=== PATIENT | male | born 1990 | race African-American/Black ===

== ENCOUNTER 2021-04-12 13:45 | Outpatient (REF) | payer OTHER, SELFPAY ==
[2021-04-12 15:05] LABS: MANUAL DIFF FLAG NO
[2021-04-12 15:10] LABS: Basophils Percent Auto 0.2 % (0-2); Eosinophils Percent Auto 0.7 % (0-4); Hematocrit 42.3 % (42-52); Hemoglobin 14.4 g/dl (14.0-18.0); Imm Gran Abs Auto 0.01 X10*3/uL (0.00-0.03); Imm Gran Pct Auto 0.2 % (0.0-0.4); Lymphocytes Absolute Auto 1.3 X10*3/uL (1.2-4.9); Mean Corpuscular Hemoglobin 30.3 pg (27.0-33.0); Mean Corpuscular Volume 89.1 fL (80-98); Mean Platelet Volume 10.6 fL (9.4-12.4); Monocytes Absolute Auto 0.5 X10*3/uL (0.1-1.2); Monocytes Percent Auto 12.5 % (2-11); Neutrophils Absolute Auto 2.2 X10*3/uL (2.0-8.3); Neutrophils Percent Auto 54.4 % (45-73); Platelet Count 233 X10*3/uL (160-400); Red Blood Count 4.75 X10*6/uL (4.60-5.80); Red Cell Distribution Width 13.5 % (11.0-16.0); White Blood Count 4.1 X10*3/uL (4.8-10.8)
[2021-04-12 15:31] LABS: Alanine Aminotransferase 84 U/L (0-40); Albumin Level 4.6 g/dL (3.5-5.0); Alkaline Phosphatase 78 U/L (39-117); Anion Gap 19 (12-20); Aspartate Amino Transferase 35 U/L (5-37); Blood Urea Nitrogen 12 mg/dL (9-16); Calcium 9.7 mg/dL (8.4-10.2); Carbon Dioxide 17 mmol/L (22-29); Chloride 104 mmol/L (96-108); Cholesterol 161 mg/dL; Estimated Glomerular Filt Rate > 60; Glucose Fasting 76 mg/dL (60-99); HDL Cholesterol 33 mg/dL; LDL Cholesterol Calculated 114 mg/dl; Potassium 3.9 mmol/L (3.3-5.1); Sodium 136 mmol/L (135-145); Total Protein 7.2 g/dL (6.5-8.0); Triglycerides 74 mg/dL
[2021-04-12 15:55] LABS: Thyroid Stimulating Hormone 0.66 uIU/mL (0.32-4.0)
== END 2021-04-12 13:46 | disposition home or self-care (01) ==
LOC: HO.LAB 13:45
PROVIDERS: PCP Internal Medicine; Visit Provider Internal Medicine
DX: Z00.00 Encounter for general adult medical examination without abnormal findings (principal); E03.9 Hypothyroidism, unspecified; E11.9 Type 2 diabetes mellitus without complications
CPT/HCPCS: 36415; 80053; 80061; 84443; 85025

== ENCOUNTER 2022-07-04 13:31 | Outpatient (REF) | payer OTHER, SELFPAY ==
[2022-07-04 13:50] LABS: MANUAL DIFF FLAG NO
[2022-07-04 14:25] LABS: Basophils Percent Auto 0.3 % (0-2); Eosinophils Absolute Auto 0.1 X10*3/uL (0.0-0.4); Eosinophils Percent Auto 0.8 % (0-4); Hematocrit 45.4 % (42.0-52.0); Hemoglobin 15.2 g/dl (14.0-18.0); Imm Gran Abs Auto 0.01 X10*3/uL (0.00-0.03); Imm Gran Pct Auto 0.2 % (0.0-0.4); Lymphocytes Percent Auto 33.5 % (20-40); Mean Corpuscular HGB Conc 33.5 g/dl (31.0-36.0); Mean Corpuscular Hemoglobin 29.6 pg (27.0-33.0); Mean Corpuscular Volume 88.3 fL (80.0-98.0); Mean Platelet Volume 10.4 fL (9.4-12.4); Monocytes Absolute Auto 0.5 X10*3/uL (0.1-1.2); Neutrophils Absolute Auto 3.5 x10*3/uL (2.0-8.3); Neutrophils Percent Auto 57.2 % (45-73); Platelet Count 224 X10*3/uL (160-400); Red Blood Count 5.14 X10*6/uL (4.60-5.80); Red Cell Distribution Width 13.1 % (11.0-16.0); White Blood Count 6.1 X10*3/uL (4.8-10.8)
[2022-07-04 14:40] LABS: Alanine Aminotransferase 32 U/L (0-40); Albumin Level 4.4 g/dL (3.5-5.0); Alkaline Phosphatase 73 U/L (39-117); Anion Gap 15 (12-20); Aspartate Amino Transferase 19 U/L (5-37); Bilirubin Total 0.7 mg/dL (0.0-1.0); Blood Urea Nitrogen 18 mg/dL (9-16); Calcium 9.6 mg/dL (8.4-10.2); Carbon Dioxide 26 mmol/L (22-29); Chloride 107 mmol/L (96-108); Cholesterol 185 mg/dL; Estimated Glomerular Filt Rate > 60; Glucose Fasting 86 mg/dL (60-99); HDL Cholesterol 36 mg/dL; LDL Cholesterol Calculated 122 mg/dl; Potassium 4.5 mmol/L (3.3-5.1); Sodium 143 mmol/L (135-145); Total Protein 7.2 g/dL (6.5-8.0); Triglycerides 137 mg/dL
[2022-07-04 14:55] LABS: Thyroid Stimulating Hormone 0.93 uIU/mL (0.32-4.0)
== END 2022-07-04 13:32 | disposition home or self-care (01) ==
LOC: HO.LAB 13:31
PROVIDERS: PCP Internal Medicine; Visit Provider Internal Medicine
DX: Z13.0 Encounter for screening for diseases of the blood and blood-forming organs and certain disorders involving the immune mechanism (principal); E03.9 Hypothyroidism, unspecified; E78.5 Hyperlipidemia, unspecified; I10 Essential (primary) hypertension
CPT/HCPCS: 36415; 80053; 80061; 84443; 85025

== ENCOUNTER 2023-08-14 12:48 | Outpatient (AMB) | payer OTHER, SELFPAY ==
[2023-08-14 12:54] VITALS: BP 110/82; PULSE 128; O2SAT 99; BMI 28.9
--- NOTE | 2023-08-14 12:54 | A.OFFPC_ITS ---
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 Knee Bolter: Not Required per policy Accompanied by: Self / Same As Patient Allergies No Known Allergies [No Known Allergies*] Allergy (Verified 07/04/22 12:52) Medication List - Last Reconciled 08/14/23 by Soto Swanson MD prazosin 1 mg PO BEDTIME quetiapine 200 mg PO BEDTIME Tobacco use date assessed: 08/14/23 Dental Screening Dental Screen Date: 08/14/23 Did you have a dental visit in the last 12 months?: No Did you have a dental problem in the last 6 months where you did not have access to dental care?: No Was dental information given to patient?: Patient has dentist HPI Physical exam HPI Details chronic depression and sees psych [facility] Medical History Depression Surgical History No pertinent past surgical history Family History Father No problems noted. Mother No problems noted. Maternal Aunt Mental health disorder Social History Housing: House Alcohol intake: never Patient Tobacco Use Status: Never used Tobacco e-Cigarette/Vaping Use: Never Used Second Hand Smoke Exposure: No service: No Current occupational status: disabled Cognitive needs: No Hearing needs: No Vision needs: Yes (glasses) Questionnaire PHQ-9 Over the last 2 weeks, how often have you been bothered by any of the following problems? 1. Little interest or pleasure in doing things: not at all 2. Feeling down, depressed, or hopeless: not at all 3. Trouble falling or staying asleep, or sleeping too much: not at all 4. Feeling tired or having little energy: not at all 5. Poor appetite or overeating: not at all 6. Feeling bad about yourself - or that you are a failure or have let yourself or your family down: not at all 7. Trouble concentrating on things, such as reading the newspaper or watching television: not at all 8. Moving or speaking so slowly that other people could have noticed. Or the opposite - being so fidgety or restless that you have been moving around a lot more than usual: not at all 9. Thoughts that you would be better off or of hurting yourself in some way: not at all Total score: 0 Depression Screening Interpretation: Negative Depression Screening Done: Yes 24875 - PHQ-9 Billing: Yes Source: Developed by Drs. Vishnu Corcoran, Maral Brito, Chuck Gomez and colleagues, with an educational reji from [employer]. Thrive Questionnaire Date Thrive assessed: 08/14/23 I am a: Patient What is your living situation today?: I have a steady place to live Within the past 12 months, did the food you bought not last and you didn't have the money to get more?: Never true Within the past 12 months, did you worry whether your food would run out before you got money to buy more?: Never true Do you have trouble paying for medicines?: No Do you have trouble getting transportation to medical appointments?: No Do you have trouble paying your heating and electricity bill?: No Do you have trouble taking care of your child, family member or friend?: No Do you have trouble with day-to-day activities such as bathing, preparing meals, shopping, managing finances, etc.?: No Are you currently unemployed and looking for a job?: No Are you interested in more education?: No Please select the resources that you would like help with: None AUDIT C Alcohol Use Questionnaire (AUDIT-C) 1. How often do you have a drink containing alcohol?: Never Total Score: 0 Score Reviewed/Action Taken: Yes JUSTIN-7 AMB Questionnaire JUSTIN-7 Date JUSTIN - 7 assessed: 08/14/23 Feeling nervous, anxious, or on edge: 2 = More than half the days Not being able to stop or control worryin = More than half the days Worrying too much about different things: 2 = More than half the days Trouble relaxin = Not at all Being so restless that it is hard to sit still: 0 = Not at all Becoming easily annoyed or irritable: 0 = Not at all Feeling afraid as if something awful might happen: 1 = Several days Total JUSTIN-7 score (0-4 normal; 5-9 mild; 10-14 moderate; 15-21 severe): 7 Source: Developed by Drs. Vishnu Corcoran, Maral Brito, Chuck Gomez and colleagues, with an educational reji from [employer]. JUSTIN-7 Assessment Billing JUSTIN-7 Assessment Tool: JUSTIN-7 Assessment 63647 Review of Systems Const Denies chills, Denies fatigue, Denies headache(s) and Denies weight loss Eyes Denies change in vision, Denies diplopia and Denies eye pain ENT Denies vertigo, Denies dizziness, Denies headache(s) and Denies nasal discharge Card Denies chest pain, Denies rapid heart rate and Denies dyspnea on exertion Resp Denies chest congestion, Denies cough, Denies pain with cough and Denies dyspnea on exertion GI Denies abdominal pain, Denies hematochezia and Denies change in bowel habits Musc Denies myalgias, Denies arthralgias and Denies joint swelling Skin/Breast Denies lesions and Denies unusual bruising Neuro Denies vertigo, Denies dizziness, Denies headache(s) and Denies focal weakness Endo Denies fatigue Physical exam (Primary Care) Vital Signs: Last Vital Signs Pulse 128 H 08/14/23 12:54 BP 110/82 08/14/23 12:54 Pulse Ox 99 08/14/23 12:54 Oxygen Delivery Method Room Air 08/14/23 12:54 BMI result Body Mass Index 28.9 Tobacco/Smoking Status: Tobacco use Status Tobacco use date assessed 08/14/23 08/14/23 12:59 Patient Tobacco Use Status Never used Tobacco 08/14/23 12:59 e-Cigarette/Vaping Use Never Used 08/14/23 12:59 PHQ-9: PHQ-9 Score PHQ-9: Total score 0 08/14/23 13:00 Depression Screening Interpretation: Negative Thrive Assessment: Date of Thrive Assessment Date Thrive assessed 08/14/23 08/14/23 12:59 Const General: cooperative, healthy appearing and no acute distress Orientation/consciousness: oriented to person, oriented to place and oriented to time HENMT Head: Yes normal to inspection, Yes normocephalic and Yes atraumatic Mouth: Normal oral and palatal mucosa present and tongue normal Throat: Yes posterior oropharynx normal and Yes uvula midline Eyes General: appearance normal, both eyes and all related structures Neck Neck: Yes normal visual inspection, Yes full ROM and Yes no lymphadenopathy Thyroid: Thyroid normal Carotids: normal carotid upstroke Chest Chest palpation & inspection: normal inspection of the chest Resp Effort & Inspection: normal respiratory effort and able to speak in complete sentences Auscultation: clear to auscultation bilaterally Cardio Jugular venous distension: no JVD Palpation: normal PMI Rate: regular rate Rhythm: regular rhythm Heart sounds: S1 normal heart sound present and S2 normal heart sound present GI Inspection: Yes normal to inspection Palpation (GI): Soft to palpation and No hepatosplenomegaly present Auscultation: normal bowel sounds General: Yes no CVA tenderness Back/Spine/Pelvis Back: no CVA tenderness Skin General skin exam: no rashes or lesions noted Neuro General: oriented to person, oriented to place and oriented to time Extrem General: Yes normal to inspection and Yes full ROM Assessment and Plan Assessment & Plan (1) Physical exam: Code(s): Z00.00 - Encounter for general adult medical examination without abnormal findings Plan: do labs (2) Chronic major depressive disorder: Code(s): F32.9 - Major depressive disorder, single episode, unspecified Plan: stable; sees psych Orders: Orders Lipid Panel Today E78.5 - Hyperlipidemia, unspecified Thyroid Stimulating Hormone Today E03.9 - Hypothyroidism, unspecified Complete Blood Count Auto Diff Today D64.9 - Anemia, unspecified Comprehensive [place]. Panel Fast Today N28.9 - Disorder of kidney and ureter, unspecified Coding Level of Care Code Est Pt Prev Care 18-39y(90382) Diagnoses Physical exam Z00.00 Chronic major depressive disorder F32.9 Additional Codes JUSTIN-7 Assessment Billing - JUSTIN-7 Assessment Tool: JUSTIN-7 Assessment 51550 ([id number])
== END 2023-08-14 13:16 | disposition home or self-care (01) ==
PROVIDERS: PCP Internal Medicine; Visit Provider Internal Medicine
DX: Z00.00 Encounter for general adult medical examination without abnormal findings (principal); F32.9 Major depressive disorder, single episode, unspecified
CPT/HCPCS: 99395

== ENCOUNTER 2023-08-14 13:21 | Outpatient (REF) | payer OTHER, SELFPAY ==
[2023-08-14 13:42] LABS: MANUAL DIFF FLAG NO
[2023-08-14 14:11] LABS: Basophils Percent Auto 0.2 % (0-2); Eosinophils Percent Auto 0.8 % (0-4); Hematocrit 47.2 % (42.0-52.0); Lymphocytes Absolute Auto 1.9 X10*3/uL (1.2-4.9); Lymphocytes Percent Auto 40.3 % (20-40); Mean Corpuscular HGB Conc 33.9 g/dl (31.0-36.0); Mean Corpuscular Hemoglobin 30.1 pg (27.0-33.0); Mean Corpuscular Volume 88.9 fL (80.0-98.0); Mean Platelet Volume 10.4 fL (9.4-12.4); Monocytes Absolute Auto 0.4 X10*3/uL (0.1-1.2); Monocytes Percent Auto 7.8 % (2-11); Neutrophils Absolute Auto 2.4 x10*3/uL (2.0-8.3); Neutrophils Percent Auto 50.9 % (45-73); Platelet Count 238 X10*3/uL (160-400); Red Blood Count 5.31 X10*6/uL (4.60-5.80); Red Cell Distribution Width 12.8 % (11.0-16.0); White Blood Count 4.7 X10*3/uL (4.8-10.8)
[2023-08-14 15:26] LABS: Alanine Aminotransferase 121 U/L (0-40); Albumin Level 4.5 g/dL (3.5-5.0); Alkaline Phosphatase 69 U/L (39-117); Anion Gap 12 (12-20); Aspartate Amino Transferase 44 U/L (5-37); Bilirubin Total 0.8 mg/dL (0.0-1.0); Blood Urea Nitrogen 16 mg/dL (9-16); Calcium 9.7 mg/dL (8.4-10.2); Carbon Dioxide 27 mmol/L (22-29); Chloride 108 mmol/L (96-108); Cholesterol 173 mg/dL (<200); Estimated Glomerular Filt Rate > 60; Glucose Fasting 88 mg/dL (60-99); HDL Cholesterol 34 mg/dL (>40); LDL Cholesterol Calculated 117 mg/dL (<100); Potassium 4.1 mmol/L (3.3-5.1); Sodium 143 mmol/L (135-145); Total Protein 7.7 g/dL (6.5-8.0); Triglycerides 111 mg/dL (<150)
[2023-08-14 15:28] LABS: Thyroid Stimulating Hormone 1.32 uIU/mL (0.32-4.0)
== END 2023-08-14 13:22 | disposition home or self-care (01) ==
LOC: HO.LAB 13:21
PROVIDERS: PCP Internal Medicine; Visit Provider Internal Medicine
DX: D64.9 Anemia, unspecified (principal); E03.9 Hypothyroidism, unspecified; E78.5 Hyperlipidemia, unspecified; N28.9 Disorder of kidney and ureter, unspecified
CPT/HCPCS: 36415; 80053; 80061; 84443; 85025

== ENCOUNTER 2024-02-16 10:41 | Outpatient (REF) | payer OTHER, SELFPAY ==
[2024-02-16 11:11] LABS: MANUAL DIFF FLAG NO
[2024-02-16 11:51] LABS: Basophils Percent Auto 0.2 % (0-2); Eosinophils Absolute Auto 0.1 X10*3/uL (0.0-0.4); Eosinophils Percent Auto 1.3 % (0-4); Hematocrit 46.5 % (42.0-52.0); Hemoglobin 15.7 g/dl (14.0-18.0); Imm Gran Abs Auto 0.01 X10*3/uL (0.00-0.03); Imm Gran Pct Auto 0.2 % (0.0-0.4); Lymphocytes Absolute Auto 2.2 X10*3/uL (1.2-4.9); Lymphocytes Percent Auto 45.9 % (20-40); Mean Corpuscular HGB Conc 33.8 g/dl (31.0-36.0); Mean Corpuscular Hemoglobin 30.5 pg (27.0-33.0); Mean Corpuscular Volume 90.3 fL (80.0-98.0); Mean Platelet Volume 10.5 fL (9.4-12.4); Monocytes Absolute Auto 0.5 X10*3/uL (0.1-1.2); Monocytes Percent Auto 10.4 % (2-11); Platelet Count 229 X10*3/uL (160-400); Red Blood Count 5.15 X10*6/uL (4.60-5.80); Red Cell Distribution Width 13.2 % (11.0-16.0); White Blood Count 4.8 X10*3/uL (4.8-10.8)
[2024-02-16 12:33] LABS: Anion Gap 18 (12-20); Blood Urea Nitrogen 21 mg/dL (9-16); Calcium 9.9 mg/dL (8.4-10.2); Carbon Dioxide 22 mmol/L (22-29); Chloride 106 mmol/L (96-108); Cholesterol 188 mg/dL (<200); Estimated Glomerular Filt Rate > 60; Glucose Fasting 91 mg/dL (60-99); HDL Cholesterol 38 mg/dL (>40); LDL Cholesterol Calculated 131 mg/dL (<100); Potassium 3.9 mmol/L (3.3-5.1); Sodium 142 mmol/L (135-145); Triglycerides 95 mg/dL (<150)
== END 2024-02-16 10:42 | disposition home or self-care (01) ==
LOC: HO.LAB 10:41
PROVIDERS: PCP Internal Medicine; Visit Provider Nurse Practitioner Psychiatric/Mental Health
DX: F34.1 Dysthymic disorder (principal); F79 Unspecified intellectual disabilities; Z79.899 Other long term (current) drug therapy
CPT/HCPCS: 36415; 80048; 80061; 85025

== ENCOUNTER 2024-08-15 10:23 | Outpatient (AMB) | payer OTHER, SELFPAY ==
[2024-08-15 10:24] VITALS: BP 122/78; PULSE 102; O2SAT 98; BMI 28.6
--- NOTE | 2024-08-15 10:24 | MHC.PC.OV ---
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 Accompanied by: Self / Same As Patient Allergies No Known Allergies [No Known Allergies*] Allergy (Verified 08/15/24 10:25) Medication List - Last Reconciled 08/16/24 by Soto Swanson MD prazosin 1 mg PO BEDTIME quetiapine 200 mg PO BEDTIME Tobacco use date assessed: 08/15/24 Dental Screening Dental Screen Date: 08/15/24 Did you have a dental visit in the last 12 months?: Yes Did you have a dental problem in the last 6 months where you did not have access to dental care?: No Was dental information given to patient?: Patient has dentist HPI Annual Exam HPI Details sees psych for depression PFSH Medical History Depression Surgical History No pertinent past surgical history Family History Father No problems noted. Mother No problems noted. Maternal Aunt Mental health disorder Social History Housing: House Alcohol intake: never Patient Tobacco Use Status: Never used Tobacco Tobacco use type: Cigarette e-Cigarette/Vaping Use: Never Used Second Hand Smoke Exposure: No service: No Current occupational status: disabled Cognitive needs: No Hearing needs: No Vision needs: Yes (glasses) Questionnaire PHQ-9 Over the last 2 weeks, how often have you been bothered by any of the following problems? 1. Little interest or pleasure in doing things: not at all 2. Feeling down, depressed, or hopeless: not at all 3. Trouble falling or staying asleep, or sleeping too much: not at all 4. Feeling tired or having little energy: not at all 5. Poor appetite or overeating: not at all 6. Feeling bad about yourself - or that you are a failure or have let yourself or your family down: not at all 7. Trouble concentrating on things, such as reading the newspaper or watching television: not at all 8. Moving or speaking so slowly that other people could have noticed. Or the opposite - being so fidgety or restless that you have been moving around a lot more than usual: not at all 9. Thoughts that you would be better off or of hurting yourself in some way: not at all Total score: 0 Depression Screening Interpretation: Negative Depression Screening Done: Yes 52749 - PHQ-9 Billing: Yes Source: Developed by Drs. Vishnu Corcoran, Maral Brito, Chuck Gomez and colleagues, with an educational reji from [employer]. Thrive Questionnaire Date Thrive assessed: 08/15/24 I am a: Patient What is your living situation today?: I have a steady place to live Within the past 12 months, did the food you bought not last and you didn't have the money to get more?: Never true Within the past 12 months, did you worry whether your food would run out before you got money to buy more?: Never true Do you have trouble paying for medicines?: No Do you have trouble getting transportation to medical appointments?: Yes Do you have trouble paying your heating and electricity bill?: No Do you have trouble taking care of your child, family member or friend?: No Do you have trouble with day-to-day activities such as bathing, preparing meals, shopping, managing finances, etc.?: Yes Are you currently unemployed and looking for a job?: No Are you interested in more education?: No Please select the resources that you would like help with: None Currently or been in a relationship where the following occur: I choose not to answer THRIVE Score: 1 AUDIT C Alcohol Use Questionnaire (AUDIT-C) 1. How often do you have a drink containing alcohol?: Never Total Score: 0 JUSTIN-7 AMB Questionnaire JUSTIN-7 Date JUSTIN - 7 assessed: 08/15/24 Feeling nervous, anxious, or on edge: 1 = Several days Not being able to stop or control worryin = Not at all Worrying too much about different things: 1 = Several days Trouble relaxin = Not at all Being so restless that it is hard to sit still: 0 = Not at all Becoming easily annoyed or irritable: 1 = Several days Feeling afraid as if something awful might happen: 0 = Not at all Total JUSTIN-7 score (0-4 normal; 5-9 mild; 10-14 moderate; 15-21 severe): 3 Source: Developed by Drs. Vishnu Corcoran, Maral Brito, Chuck Gomez and colleagues, with an educational reji from [employer]. Review of Systems Const Denies chills, Denies fatigue, Denies headache(s) and Denies weight loss Eyes Denies change in vision, Denies diplopia and Denies eye pain ENT Denies vertigo, Denies dizziness, Denies headache(s) and Denies nasal discharge Card Denies chest pain, Denies rapid heart rate and Denies dyspnea on exertion Resp Denies chest congestion, Denies cough, Denies pain with cough and Denies dyspnea on exertion GI Denies abdominal pain, Denies hematochezia and Denies change in bowel habits Musc Denies myalgias, Denies arthralgias and Denies joint swelling Skin/Breast Denies lesions and Denies unusual bruising Neuro Denies vertigo, Denies dizziness, Denies headache(s) and Denies focal weakness Endo Denies fatigue Physical exam (Primary Care) Vital Signs: Last Vital Signs Pulse 102 H 08/15/24 10:24 BP 122/78 08/15/24 10:24 Pulse Ox 98 08/15/24 10:24 Oxygen Delivery Method Room Air 08/15/24 10:24 BMI result Body Mass Index 28.6 Tobacco/Smoking Status: Tobacco use Status Tobacco use date assessed 08/15/24 08/15/24 10:25 Patient Tobacco Use Status Never used Tobacco 08/15/24 10:25 Tobacco use type Cigarette 08/15/24 10:25 e-Cigarette/Vaping Use Never Used 08/15/24 10:25 PHQ-9: PHQ-9 Score PHQ-9: Total score 0 08/15/24 10:25 Depression Screening Interpretation: Negative Thrive Assessment: Date of Thrive Assessment Date Thrive assessed 08/15/24 08/15/24 10:25 Currently or been in a relationship where the following occur: I choose not to answer Const General: cooperative, healthy appearing and no acute distress Orientation/consciousness: oriented to person, oriented to place and oriented to time HENMT Head: Yes normal to inspection, Yes normocephalic and Yes atraumatic Mouth: Normal oral and palatal mucosa present and tongue normal Throat: Yes posterior oropharynx normal and Yes uvula midline Eyes General: appearance normal, both eyes and all related structures Neck Neck: Yes normal visual inspection, Yes full ROM and Yes no lymphadenopathy Thyroid: Thyroid normal Carotids: normal carotid upstroke Chest Chest palpation & inspection: normal inspection of the chest Resp Effort & Inspection: normal respiratory effort and able to speak in complete sentences Auscultation: clear to auscultation bilaterally Cardio Jugular venous distension: no JVD Palpation: normal PMI Rate: regular rate Rhythm: regular rhythm Heart sounds: S1 normal heart sound present and S2 normal heart sound present GI Inspection: Yes normal to inspection Palpation (GI): Soft to palpation and No hepatosplenomegaly present Auscultation: normal bowel sounds General: Yes no CVA tenderness Back/Spine/Pelvis Back: no CVA tenderness Skin General skin exam: no rashes or lesions noted Neuro General: oriented to person, oriented to place and oriented to time Extrem General: Yes normal to inspection and Yes full ROM Coding Level of Care Code Est Pt Prev Care 18-39y(78899) Diagnoses Physical exam Z00.00 Depression F32.9 Additional Codes PHQ-9 - 82998 - PHQ-9 Billing: Yes ([id number]) Assessment & Plan Assessment & Plan (1) Physical exam: Code(s): Z00.00 - Encounter for general adult medical examination without abnormal findings Category: Medical Plan: do labs (2) Depression: Comment: cont same meds; f/u with psych Code(s): F32.9 - Major depressive disorder, single episode, unspecified Category: Medical Plan: stable Orders: Orders Complete Blood Count Auto Diff Today Z13.0 - Encounter for screening for diseases of the blood and blood-forming organs and certain disorders involving the immune mechanism Lipid Panel Today Z13.220 - Encounter for screening for lipoid disorders Thyroid Stimulating Hormone Today Z13.29 - Encounter for screening for other suspected endocrine disorder Comprehensive [place]. Panel Fast Today Z13.9 - Encounter for screening, unspecified
== END 2024-08-15 10:39 | disposition home or self-care (01) ==
PROVIDERS: PCP Internal Medicine; Visit Provider Internal Medicine
DX: Z00.00 Encounter for general adult medical examination without abnormal findings (principal); F32.9 Major depressive disorder, single episode, unspecified

== ENCOUNTER → 2024-08-15 10:23 | Outpatient (BNVA) | payer OTHER, SELFPAY | PROVIDERS: PCP Internal Medicine; Visit Provider Internal Medicine | DX: Z00.00 Encounter for general adult medical examination without abnormal findings (principal); F32.9 Major depressive disorder, single episode, unspecified | CPT/HCPCS: 96127; 99395 ==

== ENCOUNTER 2024-12-07 09:04 | Outpatient (AMB) | payer OTHER, SELFPAY ==
--- NOTE | 2024-12-07 09:08 | A.OFFPC_ITS ---
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 Accompanied by: Brother Allergies No Known Allergies [No Known Allergies*] Allergy (Verified 12/07/24 09:15) Medication List - Last Reconciled 12/07/24 by Soto Swanson MD prazosin 1 mg PO BEDTIME quetiapine 200 mg PO BEDTIME Tobacco use date assessed: 12/07/24 Dental Screening Dental Screen Date: 12/07/24 Did you have a dental visit in the last 12 months?: Yes Did you have a dental problem in the last 6 months where you did not have access to dental care?: No Was dental information given to patient?: Patient has dentist HPI 3mth f/u HPI Details depression; sees psychiatry; stable [facility] Medical History Depression Surgical History No pertinent past surgical history Family History Father No problems noted. Mother No problems noted. Maternal Aunt Mental health disorder Social History Housing: House Alcohol intake: never Patient Tobacco Use Status: Never used Tobacco Tobacco use type: Cigarette e-Cigarette/Vaping Use: Never Used Second Hand Smoke Exposure: No service: No Current occupational status: disabled Cognitive needs: No Hearing needs: No Vision needs: Yes (glasses) Questionnaire PHQ-9 Over the last 2 weeks, how often have you been bothered by any of the following problems? 1. Little interest or pleasure in doing things: not at all 2. Feeling down, depressed, or hopeless: not at all 3. Trouble falling or staying asleep, or sleeping too much: not at all 4. Feeling tired or having little energy: not at all 5. Poor appetite or overeating: not at all 6. Feeling bad about yourself - or that you are a failure or have let yourself or your family down: not at all 7. Trouble concentrating on things, such as reading the newspaper or watching television: not at all 8. Moving or speaking so slowly that other people could have noticed. Or the opposite - being so fidgety or restless that you have been moving around a lot more than usual: not at all 9. Thoughts that you would be better off or of hurting yourself in some way: not at all Total score: 0 Depression Screening Interpretation: Negative Depression Screening Done: Yes 32681 - PHQ-9 Billing: Yes Source: Developed by Drs. Vishnu Corcoran, Maral Brito, Chuck Gomez and colleagues, with an educational reji from [employer]. Thrive Questionnaire Date Thrive assessed: 12/07/24 I am a: Patient What is your living situation today?: I have a steady place to live Within the past 12 months, did the food you bought not last and you didn't have the money to get more?: Never true Within the past 12 months, did you worry whether your food would run out before you got money to buy more?: Never true Do you have trouble paying for medicines?: No Do you have trouble getting transportation to medical appointments?: Yes Do you have trouble paying your heating and electricity bill?: No Do you have trouble taking care of your child, family member or friend?: No Do you have trouble with day-to-day activities such as bathing, preparing meals, shopping, managing finances, etc.?: Yes Are you currently unemployed and looking for a job?: No Are you interested in more education?: No Please select the resources that you would like help with: None Currently or been in a relationship where the following occur: I choose not to answer THRIVE Score: 1 AUDIT C Alcohol Use Questionnaire (AUDIT-C) 1. How often do you have a drink containing alcohol?: Never Total Score: 0 JUSTIN-7 AMB Questionnaire JUSTIN-7 Date JUSTIN - 7 assessed: 12/07/24 Feeling nervous, anxious, or on edge: 1 = Several days Not being able to stop or control worryin = Not at all Worrying too much about different things: 1 = Several days Trouble relaxin = Not at all Being so restless that it is hard to sit still: 0 = Not at all Becoming easily annoyed or irritable: 1 = Several days Feeling afraid as if something awful might happen: 0 = Not at all Total JUSTIN-7 score (0-4 normal; 5-9 mild; 10-14 moderate; 15-21 severe): 3 Source: Developed by Drs. Vishnu Corcoran, Maral Brito, Chuck Gomez and colleagues, with an educational reji from [employer]. Review of Systems Const Denies chills, Denies headache(s) and Denies weight loss ENT Denies headache(s) Card Denies chest pain, Denies syncope, Denies irregular heart rhythm and Denies dyspnea Resp Denies chest congestion, Denies cough and Denies dyspnea GI Denies abdominal pain, Denies change in stool character, Denies nausea and Denies vomiting Musc Denies deformity and Denies joint swelling Neuro Denies syncope and Denies headache(s) Physical exam (Primary Care) Vital Signs: Last Vital Signs Pulse 127 H 12/07/24 09:09 BP 122/80 12/07/24 09:09 Pulse Ox 96 12/07/24 09:09 Oxygen Delivery Method Room Air 12/07/24 09:09 BMI result Body Mass Index 28.7 Tobacco/Smoking Status: Tobacco use Status Tobacco use date assessed 12/07/24 12/07/24 09:15 Patient Tobacco Use Status Never used Tobacco 12/07/24 09:15 Tobacco use type Cigarette 12/07/24 09:15 e-Cigarette/Vaping Use Never Used 12/07/24 09:15 PHQ-9: PHQ-9 Score PHQ-9: Total score 0 12/07/24 09:15 Depression Screening Interpretation: Negative Thrive Assessment: Date of Thrive Assessment Date Thrive assessed 12/07/24 12/07/24 09:15 Currently or been in a relationship where the following occur: I choose not to answer Const General: cooperative, comfortable, no acute distress and alert Neck Neck: Yes no lymphadenopathy Thyroid: Thyroid normal Resp Effort & Inspection: normal respiratory effort Auscultation: clear to auscultation bilaterally Percussion: percussion normal Cardio Jugular venous distension: no JVD Palpation: normal PMI Rate: regular rate Rhythm: regular rhythm Heart sounds: S1 normal heart sound present and S2 normal heart sound present GI Inspection: Yes normal to inspection Palpation (GI): No hepatosplenomegaly present Skin General skin exam: no rashes or lesions noted Extrem General: Yes no clubbing, cyanosis or edema Coding Level of Care Code Est Pt Level 3 (74343) Diagnoses Chronic major depressive disorder F32.9 Additional Codes PHQ-9 - 10300 - PHQ-9 Billing: Yes ([id number]) Assessment & Plan Assessment & Plan (1) Chronic major depressive disorder: Code(s): F32.9 - Major depressive disorder, single episode, unspecified Category: Medical Plan: stable; as per psych
[2024-12-07 09:09] VITALS: BP 122/80; PULSE 127; O2SAT 96; BMI 28.7
--- OUTSIDE RECORDS SUMMARY | 2024-12-07 09:39 | XMS_ITS | Clinical Summary ---
Author Organization [facility] Address [address] [place] [address] Phone Care Team Providers Care Quality Project Manager Name Role Phone Unavailable Primary Care Provider Unavailabl e Immunizations Immunization Administration Dates Next Due DTP 06/04/1995, 3,10/17/1991,08/23,1990 H1N1 12/05/2009 Hep B, ped/adol 10/24/2003,06/29/2003,05/15/2003 Hib (PRP-T) 05/09/1992 IPV 06/04/1995, 3,10/17/1991,09/02 Influenza, injectable, trivalent 08/23/2008 MMR 06/04/1995,07/05/1992 Meningococcal Conj (Menactra) MCV4P 08/23/2008 Td (adult) (MBL), 2 Lf tetan us toxoid, PF, adsorbed 05/15/2003 Tdap 08/23/2008 Family History Relation Name Status Comments Brother Alive Father Alive Father: Healthy Half-Brother Alive Half brother (M ): Asthma Maternal Grandmother Materna l grandmother: Diabetes mellitus, Cancer, ovarian,diabetic, hypertension, Mother Mother: Anemia, asthma, Migraines Other No family histo ry of Strabismus/amblyopia, No family history of Deafness, Family history of Sudden /ID under age 55, No family history of Obesity, No family history of Developmental dislocation of hip, Family history of Diabetes mellitus, No family history of Elevated cholesterol, No family history of ADD/ADHD, No family history of Autism, No family history of Seizure disorder Social History Tobacco Use Types Packs/Day Years Used Date Smoking Tobacco: Never Assessed Sex and Gender Information Value Date Recorded Sex Assigned at Not on file Legal Sex Male 4:36 PM EDT Gender Identity Not on file Sexual Orientation Not on file Last Filed Vital Signs Vital Sign Reading Time Taken Comments Blood Pressure 110/80 08/12/2010 12:00 AM EST Pulse - - Temperature 36.8 ??C (98.3 ??F) 12/05/2009 12:[address] Respiratory Rate - - Oxygen Saturation - - Inhaled Oxygen Concentration - - Weight 66.2 kg (146 lb) 08/12/2010 12:00 AM EST Height 161.9 cm (5' 3.75 ) 12/05/2009 12:[address] Body Mass Index 25.26 12/05/2009 12:00 AM EST Plan of Treatment Health Maintenance Due Date Last Done Comments Varicella Vaccines (1 of 2 - 13+ 2-dose series) 2003 Consider Men B Vaccine (1 of 2 - Bexsero 2-dose series) 2006 DTaP,Tdap,and Td Vaccines (7 - Td or Tdap) 08/23/2018 08/23/2008, 05/15/2003, 06/04/1995, Additional history exists Influenza Vaccines (#1) 2024 08/23/2008 COVID-19 Vaccine ( - season) 2024 HIB Vaccines Completed 05/09/1992 IPV Vaccines Completed 06/04/1995, 03/29, 10/17/1991, Additional history exists MMR Vaccines Completed 06/04/1995, 07/05/1992 Hepatitis B Vaccines Completed 10/24/2003, 06/29/2003, 05/15/2003 Meningococcal Vaccine Completed 08/23/2008 HPV Vaccines Aged Out No longer eligi ble based on patient's age to complete this topic Hepatitis A Vaccines Aged Out No long er eligible based on patient's age to complete this topic Men B Vaccine Aged Out No longer elig ible based on patient's age to complete this topic Pneumococcal Vaccine Aged Out No long er eligible based on patient's age to complete this topic
--- OUTSIDE RECORDS SUMMARY | 2024-12-07 09:39 | XMS_ITS | Encounter Summary ---
Author Organization [facility] Address [address] [place] [address] Phone Care Team Providers Care Warehouse Delivery Manager Name Role Phone Noemi Mcbride NP Primary Care Provider Osmany aranda Encounter Details Date Type Department Care Team (Late st Contact Info) Description 07/22/2011 Documentation [facility] [address] [place], [place] [phone] Family Medicine, Physician [address] [place] [address] Social History Tobacco Use Types Packs/Day Years Used Date Smoking Tobacco: Never Assessed Sex and Gender Information Value Date Recorded Sex Assigned at Not on file Legal Sex Male 4:36 PM EDT Gender Identity Not on file Sexual Orientation Not on file documented as of this encounter Plan of Treatment Not on file documented as of this encounter Visit Diagnoses Not on filedocumented in this encounter Care Teams Warehouse Delivery Manager Relationship Specialty Start Date End Date Noemi Mcbride NP PCP - General 05/08/17 01/06/23 documented as of this encounter
--- OUTSIDE RECORDS SUMMARY | 2024-12-07 09:39 | XMS_ITS | Encounter Summary ---
Author Organization [facility] Address [address] [place] [phone] Phone Care Team Providers Care Alarm Installation Technician Name Role Phone Noemi Mcbride NP Primary Care Provider Osmany aranda Encounter Details Date Type Department Care Team (Late st Contact Info) Description 05/14/2017 Conversion Encounter [facility] - [address] [address] Social History Tobacco Use Types Packs/Day Years [...] on filedocumented in this encounter Care Teams Alarm Installation Technician Relationship Specialty Start Date End Date Noemi Mcbride NP PCP - General 05/08/17 01/06/23 documented as of this encounter
--- OUTSIDE RECORDS SUMMARY | 2024-12-07 09:39 | XMS_ITS | Encounter Summary ---
Author Organization [facility] Address [address] [place] [address] Phone Care Team Providers Care Per Diem Name Role Phone Noemi Mcbride NP Primary Care Provider Osmany aranda Encounter Details Date Type Department Care Team (Late st Contact Info) Description 04/24/2011 Documentation [facility] [address] [place], [place] [phone] Family Medicine, Physician [address] [place] [address] Social History Tobacco Use Types Packs/Day Years [...] on filedocumented in this encounter Care Teams Per Diem Relationship Specialty Start Date End Date Noemi Mcbride NP PCP - General 05/08/17 01/06/23 documented as of this encounter
== END 2024-12-07 09:20 | disposition home or self-care (01) ==
LOC: HO.HMCH 09:05
PROVIDERS: PCP Internal Medicine; Visit Provider Internal Medicine
DX: F32.9 Major depressive disorder, single episode, unspecified (principal)

== ENCOUNTER → 2024-12-07 09:04 | Outpatient (BNVA) | payer OTHER, SELFPAY | PROVIDERS: PCP Internal Medicine; Visit Provider Internal Medicine | DX: F32.9 Major depressive disorder, single episode, unspecified (principal) | CPT/HCPCS: 96127; 99212 ==

== ENCOUNTER 2025-03-27 10:06 | Outpatient (REF) | payer OTHER, SELFPAY ==
[2025-03-27 10:22] LABS: MANUAL DIFF FLAG NO
[2025-03-27 10:36] LABS: Basophils Percent Auto 0.2 % (0-2); Eosinophils Absolute Auto 0.1 X10*3/uL (0.0-0.4); Eosinophils Percent Auto 1.5 % (0-4); Hematocrit 44.1 % (42.0-52.0); Hemoglobin 14.8 g/dl (14.0-18.0); Imm Gran Abs Auto 0.01 X10*3/uL (0.00-0.03); Imm Gran Pct Auto 0.2 % (0.0-0.4); Lymphocytes Absolute Auto 2.2 X10*3/uL (1.2-4.9); Lymphocytes Percent Auto 41.6 % (20-40); Mean Corpuscular HGB Conc 33.6 g/dl (31.0-36.0); Mean Corpuscular Hemoglobin 30.3 pg (27.0-33.0); Mean Corpuscular Volume 90.2 fL (80.0-98.0); Mean Platelet Volume 10.1 fL (9.4-12.4); Monocytes Absolute Auto 0.5 X10*3/uL (0.1-1.2); Monocytes Percent Auto 9.7 % (2-11); Neutrophils Absolute Auto 2.5 x10*3/uL (2.0-8.3); Neutrophils Percent Auto 46.8 % (45-73); Platelet Count 211 X10*3/uL (160-400); Red Blood Count 4.89 X10*6/uL (4.60-5.80); Red Cell Distribution Width 12.9 % (11.0-16.0); White Blood Count 5.4 X10*3/uL (4.8-10.8)
--- OUTSIDE RECORDS SUMMARY | 2025-03-27 10:43 | XMS_ITS | Encounter Summary ---
Author Organization [facility] Address [address] [place] [address] Phone Care Team Providers Care Supervisor Denture Department Name Role Phone Noemi Mcbride NP Primary Care Provider Osmany aranda Encounter Details Date Type Department Care Team (Late st Contact Info) Description 07/22/2011 Documentation [facility] [address] [place], [place] [phone] Family Medicine, Physician [address] [place] [address] Social History Tobacco Use Types Packs/Day Years [...] on filedocumented in this encounter Care Teams Supervisor Denture Department Relationship Specialty Start Date End Date Noemi Mcbride NP PCP - General 05/08/17 01/06/23 documented as of this encounter
[2025-03-27 11:10] LABS: Alanine Aminotransferase 85 U/L (0-40); Albumin Level 4.4 g/dL (3.5-5.0); Alkaline Phosphatase 75 U/L (39-117); Anion Gap 14 (12-20); Aspartate Amino Transferase 34 U/L (5-37); Bilirubin Total 0.6 mg/dL (0.0-1.0); Blood Urea Nitrogen 16 mg/dL (9-16); Calcium 9.1 mg/dL (8.4-10.2); Carbon Dioxide 24 mmol/L (22-29); Chloride 109 mmol/L (96-108); Cholesterol 172 mg/dL (<200); Estimated Glomerular Filt Rate > 60; Glucose Fasting 102 mg/dL (60-99); HDL Cholesterol 32 mg/dL (>40); LDL Cholesterol Calculated 101 mg/dL (<100); Potassium 4.2 mmol/L (3.3-5.1); Sodium 143 mmol/L (135-145); Total Protein 6.8 g/dL (6.5-8.0); Triglycerides 195 mg/dL (<150)
== END 2025-03-27 10:07 | disposition home or self-care (01) ==
LOC: HO.LAB 10:06
PROVIDERS: Visit Provider Nurse Practitioner Psychiatric/Mental Health
DX: Z79.899 Other long term (current) drug therapy (principal)
CPT/HCPCS: 36415; 80053; 80061; 85025

== ENCOUNTER 2025-06-29 13:26 | Outpatient (AMB) | payer OTHER, SELFPAY ==
--- NOTE | 2025-06-29 13:32 | A.OFFPC_ITS ---
Vital Signs 06/29/25 13:34 Height 5 ft 8 in Weight 198 lb 8 oz BMI 30.2 BP 102/70 Blood Pressure Location Lt brachial Position Sitting Respiration 18 Pulse 115 H Pulse Source Pulse Oximeter Temp 99.8 F Temp Source Temporal Artery Scan Pulse Oximetry (%) 96 Oxygen Delivery Method Room Air Intake Visit Reasons: BERNABE from [facility] Intern Required: No Accompanied by: Brother Allergies No Known Allergies (No Known Allergies*) Allergy (Verified 06/29/25 13:49) Medication List - Last Reconciled 06/29/25 by KENJI Tee prazosin 1 mg PO BEDTIME quetiapine 200 mg PO BEDTIME Tobacco use date assessed: 06/29/25 Dental Screening Dental Screen Date: 06/29/25 Did you have a dental visit in the last 12 months?: Yes Did you have a dental problem in the last 6 months where you did not have access to dental care?: No Was dental information given to patient?: Patient has dentist HPI [facility] Details The patient is 35 year old male presenting to transition care from Dr. Swanson, who retired. Has medical history of major depression, HLD, elevated liver enzymes. Patient is accompanied with his brother. Patient is quiet and guarded but cooperative Reports mild headache infrequent; happened 3 times last month Reports only be drinking about one 16 oz bottles of water per day The patient has been on seroquel for year per brother. He is currently on 200mg at bedtime He has never had an ekg done before [facility]-reports having this about 3-4 days in may frontal region reports that the pain was mild recommend to increase the fluids [facility] via phone once a month [facility] Tellez-therapy [facility] psychiatrist every 3 months No recent changes with his medication Reports that he has been on the medication for years-with no ekg readings EKG with multiple artifacts due to issues sticking, the patient was sweaty shows sinus rhythm with slight inferior repolarization disturbance, small negative T in AVF QTC 348 PFSH Medical History Depression Surgical History No pertinent past surgical history Family History Father No problems noted. Mother No problems noted. Maternal Aunt Mental health disorder Social History Housing: House Alcohol intake: never Patient Tobacco Use Status: Never used Tobacco Tobacco use type: Cigarette e-Cigarette/Vaping Use: Never Used Second Hand Smoke Exposure: No service: No Current occupational status: disabled Cognitive needs: No Hearing needs: No Vision needs: Yes (glasses) Questionnaire PHQ-9 Over the last 2 weeks, how often have you been bothered by any of the following problems? 1. Little interest or pleasure in doing things: several days 2. Feeling down, depressed, or hopeless: several days 3. Trouble falling or staying asleep, or sleeping too much: more than half the days 4. Feeling tired or having little energy: not at all 5. Poor appetite or overeating: not at all 6. Feeling bad about yourself - or that you are a failure or have let yourself or your family down: not at all 7. Trouble concentrating on things, such as reading the newspaper or watching television: not at all 8. Moving or speaking so slowly that other people could have noticed. Or the opposite - being so fidgety or restless that you have been moving around a lot more than usual: not at all 9. Thoughts that you would be better off or of hurting yourself in some way: not at all Total score: 4 Source: Developed by Drs. Vishnu Corcoran, Maral Brito, Chuck Gomez and colleagues, with an educational reji from [employer] Thrive Questionnaire Date Thrive assessed: 12/07/24 I am a: Parent/Caregiver What is your living situation today?: I have a steady place to live Within the past 12 months, did the food you bought not last and you didn't have the money to get more?: Never true Within the past 12 months, did you worry whether your food would run out before you got money to buy more?: Never true Do you have trouble paying for medicines?: No Do you have trouble getting transportation to medical appointments?: Yes Do you have trouble paying your heating and electricity bill?: No Do you have trouble taking care of your child, family member or friend?: No Do you have trouble with day-to-day activities such as bathing, preparing meals, shopping, managing finances, etc.?: No Are you currently unemployed and looking for a job?: Yes Are you interested in more education?: No Please select the resources that you would like help with: None Currently or been in a relationship where the following occur: No concerns reported THRIVE Score: 1 AUDIT C Alcohol Use Questionnaire (AUDIT-C) 1. How often do you have a drink containing alcohol?: Never Total Score: 0 JUSTIN-7 AMB Questionnaire JUSTIN-7 Date JUSTIN - 7 assessed: 12/07/24 Feeling nervous, anxious, or on edge: 3 = Nearly every day Not being able to stop or control worryin = Nearly every day Worrying too much about different things: 3 = Nearly every day Trouble relaxin = Not at all Being so restless that it is hard to sit still: 0 = Not at all Becoming easily annoyed or irritable: 3 = Nearly every day Feeling afraid as if something awful might happen: 3 = Nearly every day Total JUSTIN-7 score (0-4 normal; 5-9 mild; 10-14 moderate; 15-21 severe): 15 Source: Developed by Drs. Vishnu Corcoran, Maral Brito, Chuck Gomez and colleagues, with an educational reji from [employer] Review of Systems Const Reports headache(s) (mild and infrequent) Eyes Denies loss of vision ENT Denies vertigo, Denies dizziness, Reports headache(s) (mild and infrequent) and Denies sore throat Card Denies chest pain, Denies leg edema and Denies lightheadedness Resp Denies cough, Denies hemoptysis and Denies wheezing GI Denies abdominal pain, Denies melena, Denies constipation, Denies diarrhea and Denies vomiting Denies dysuria, Denies urinary frequency and Denies urinary urgency Musc Denies arthralgias, Denies joint swelling, Denies numbness and Denies tingling Neuro Denies Abnormal speech present, Denies behavioral changes, Denies vertigo, Denies dizziness, Reports headache(s) (mild and infrequent), Denies loss of vision, Denies memory loss, Denies numbness and Denies tingling Psych Reports anxiety, Denies behavioral changes, Reports depression, Denies memory loss and Denies panic attacks Landon/Lymph Denies easy bleeding and Denies easy bruising Aller/Immun Denies wheezing Physical exam (Primary Care) Vital Signs: Last Vital Signs Temp 99.8 F 06/29/25 13:34 Pulse 115 H 06/29/25 13:34 Resp 18 06/29/25 13:34 BP 102/70 06/29/25 13:34 Pulse Ox 96 06/29/25 13:34 Oxygen Delivery Method Room Air 06/29/25 13:34 BMI result Body Mass Index 30.2 Tobacco/Smoking Status: Tobacco use Status Tobacco use date assessed 06/29/25 06/29/25 13:38 Patient Tobacco Use Status Never used Tobacco 06/29/25 13:38 Tobacco use type Cigarette 06/29/25 13:38 e-Cigarette/Vaping Use Never Used 06/29/25 13:38 PHQ-9: PHQ-9 Score PHQ-9: Total score 4 06/29/25 13:38 Thrive Assessment: Date of Thrive Assessment Date Thrive assessed 12/07/24 06/29/25 13:38 Currently or been in a relationship where the following occur: No concerns reported Const General: healthy appearing, no acute distress, alert and awake Nutritional Appearance: well nourished Orientation/consciousness: oriented to person, oriented to place and oriented to time HENMT Ears: TM's normal bilaterally General nose exam: Normal nasal mucous membranes and turbinates present Eyes Conjunctivae: conjunctivae normal Sclerae: sclerae normal Pupils: Equal, round and reactive pupils present Neck Neck: Yes no lymphadenopathy and Yes no JVD Thyroid: Thyroid normal Carotids: no bruits Resp Effort & Inspection: normal respiratory effort and not tachypneic Auscultation: no crackles, no rales, no rhonchi and no wheezes Cardio Rate: regular rate Rhythm: regular rhythm Heart sounds: no murmurs and normal S1 and S2 GI Palpation (GI): Soft to palpation, nontender, no hepatomegaly and no splenomegaly Auscultation: normal bowel sounds General: Yes no CVA tenderness Back/Spine/Pelvis Back: no CVA tenderness Skin General skin exam: no rashes or lesions noted and dry skin Neuro General: oriented to person, oriented to place and oriented to time Cranial nerves: Yes Equal, round and reactive pupils present Speech: No Abnormal speech present Gait exam (Neuro): Normal gait present Motor exam (neuro): no tremor noted Extrem Right upper extremity: full ROM Left upper extremity: full ROM Right lower extremity: full ROM; no edema Left lower extremity: full ROM; no edema Psych Mental Status: mental status grossly normal Speech and movement: Normal speech and movement present Affect: Other affect and mood findings present (guarded) Attitude: cooperative Thought process: Normal thought process present Coding Level of Care Code Est Pt Level 3 (36035) Diagnoses Chronic major depressive disorder F32.9 Elevated liver enzymes R74.8 Mixed hyperlipidemia E78.2 Hyperlipidemia type: mixed hyperlipidemia Nonintractable headache, unspecified chronicity pattern, unspecified headache type R51.9 Headache type: unspecified Headache chronicity pattern: unspecified pattern Intractability: not intractable Time Spent (min) 37 Assessment & Plan Assessment & Plan (1) Chronic major depressive disorder: Code(s): F32.9 - Major depressive disorder, single episode, unspecified Category: Medical Plan: Continue CBT Continue prazosin 1 mg at bedtime and Seroquel 200 mg at bedtime Follow up with Psychiatry as scheduled [facility] via phone once a month [facility] Tellez-therapy [facility] psychiatrist every 3 months EKG was performed to monitor cardiac effects from quetiapine, no qtc prolongation (2) Elevated liver enzymes: Code(s): R74.8 - Abnormal levels of other serum enzymes Category: Medical Plan: The patient's elevated liver enzymes, specifically ALT, are being monitored due to fluctuations between 85 and 121 U/L. Potential contributing factors such as alcohol, acetaminophen, and fatty foods were discussed, with a recommendation to monitor dietary intake. The patient is on quetiapine, which may influence liver enzyme levels. Limit alcohol, drug containing Tylenol or acetaminophen/fatty foods. (3) HLD (hyperlipidemia): Code(s): E78.5 - Hyperlipidemia, unspecified Category: Medical Qualifiers: Hyperlipidemia type: mixed hyperlipidemia Qualified Code(s): E78.2 - Mixed hyperlipidemia Plan: The patient has hypertriglyceridemia with levels at 195 mg/dL, slightly above the target of less than 150 mg/dL. Dietary modifications, including reducing sugar and processed food intake, were recommended to manage triglyceride levels.The patient's HDL cholesterol is low at 32 mg/dL, below the desired level of greater than 40 mg/dL. An omega-3 supplement, such as fish oil, was recommended to help increase HDL levels. (4) Headache: Code(s): R51.9 - Headache, unspecified Category: Medical Qualifiers: Headache type: unspecified Headache chronicity pattern: unspecified pattern Intractability: not intractable Qualified Code(s): R51.9 - Headache, unspecified Plan: Mild infrequent headaches. Encouraged the patient to increase fluid hydration. We will continue to monitor Orders: Orders Complete Blood Count Auto Diff 3 Months E78.2 - Mixed hyperlipidemia, F32.9 - Major depressive disorder, single episode, unspecified, F33.9 - Major depressive disorder, recurrent, unspecified, R74.8 - Abnormal levels of other serum enzymes Comprehensive [place]. Panel Fast 3 Months E78.2 - Mixed hyperlipidemia, F32.9 - Major depressive disorder, single episode, unspecified, F33.9 - Major depressive disorder, recurrent, unspecified, R74.8 - Abnormal levels of other serum enzymes Lipid Panel 3 Months E78.2 - Mixed hyperlipidemia, F32.9 - Major depressive disorder, single episode, unspecified, F33.9 - Major depressive disorder, recurrent, unspecified, R74.8 - Abnormal levels of other serum enzymes TSH reflex Free T4 3 Months E78.2 - Mixed hyperlipidemia, F32.9 - Major depressive disorder, single episode, unspecified, F33.9 - Major depressive disorder, recurrent, unspecified, R74.8 - Abnormal levels of other serum enzymes UA CC w/rflx Micro + Cult 3 Months E78.2 - Mixed hyperlipidemia, F32.9 - Major depressive disorder, single episode, unspecified, F33.9 - Major depressive disorder, recurrent, unspecified, R74.8 - Abnormal levels of other serum enzymes
[2025-06-29 13:34] VITALS: BP 102/70; PULSE 115; RESP 18; TEMP 37.7; O2SAT 96; BMI 30.2
--- OUTSIDE RECORDS SUMMARY | 2025-06-29 14:58 | XMS_ITS | Encounter Summary ---
Author Organization [facility] Address [address] [place] [address] Phone Care Team Providers Care Backend Developer Name Role Phone Noemi Mcbride NP Primary Care Provider Osmany aranda Encounter Details Date Type Department Care Team (Late st Contact Info) Description 05/14/2017 Conversion Encounter [facility] - [address] [address] Social History Tobacco Use Types Packs/Day Years [...] on filedocumented in this encounter Care Teams Backend Developer Relationship Specialty Start Date End Date Noemi Mcbride NP PCP - General 05/08/17 01/06/23 documented as of this encounter
--- OUTSIDE RECORDS SUMMARY | 2025-06-29 14:58 | XMS_ITS | Encounter Summary ---
Author Organization [facility] Address [address] [place] [phone] Phone Care Team Providers Care Retail Account Manager Name Role Phone Noemi Mcbride NP Primary Care Provider Osmany aranda Encounter Details Date Type Department Care Team (Late st Contact Info) Description 04/24/2011 Documentation [facility] [address] [place], [place] [phone] Family Medicine, Physician [address] [place] [address] Social History Tobacco Use Types Packs/Day Years [...] on filedocumented in this encounter Care Teams Retail Account Manager Relationship Specialty Start Date End Date Noemi Mcbride NP PCP - General 05/08/17 01/06/23 documented as of this encounter
--- OUTSIDE RECORDS SUMMARY | 2025-06-29 14:58 | XMS_ITS | Clinical Summary ---
Author Organization [facility] Address [address] [place] [address] Phone Care Team Providers Care Emblem Fuser Tender Name Role Phone Unavailable Primary Care Provider [...] history of Deafness, Family history of Sudden /DC under age 55, No family history of [...] AM EST Pulse - - Temperature 36.8 C (98.3 F) 12/05/2009 12:00 AM EST Respiratory Rate - - Oxygen Saturation - - Inhaled Oxygen Concentration - - Weight 66.2 kg (146 lb) 08/12/2010 12:00 AM EST Height 161.9 cm (5' 3.75 ) 12/05/2009 12:[address] Body Mass Index 25.26 12/05/2009 12:00 AM EST Plan of Treatment Health Maintenance Due Date Last Done Comments Varicella Vaccines (1 of 2 - 13+ 2-dose series) 2003 HPV Vaccines (1 - 3-dose SCDM series) 2017 DTaP,Tdap,and Td Vaccines (7 - Td or Tdap) 08/23/2018 08/23/2008, 05/15/2003, 06/04/1995, Additional history exists Influenza Vaccines (#1) 2025 08/23/2008 COVID-19 Vaccine ( season) 2025 HIB Vaccines Completed 05/09/1992 IPV Vaccines Completed 06/04/1995, 03/29, 10/17/1991, Additional history exists MMR Vaccines Completed 06/04/1995, 07/05/1992 Hepatitis B Vaccines Completed 10/24/2003, 06/29/2003, 05/15/2003 Meningococcal Vaccine Completed 08/23/2008 Hepatitis A Vaccines Aged Out No long er eligible based on patient's age to complete this topic Men B Vaccine Aged Out No longer elig ible based on patient's age to complete this topic Pneumococcal Vaccine Aged Out No long er eligible based on patient's age to complete this topic
--- OUTSIDE RECORDS SUMMARY | 2025-06-29 14:58 | XMS_ITS | Encounter Summary ---
Author Organization [facility] Address [address] [place] [address] Phone Care Team Providers Care Teasel Gig Operator Name Role Phone Noemi Mcbride NP Primary Care Provider Osmany aranda Encounter Details Date Type Department Care Team (Late st Contact Info) Description 07/22/2011 Documentation [facility] [address] [place], [place] [phone] Family Medicine, Physician [address] [place] [address] Social History Tobacco Use Types Packs/Day Years [...] on filedocumented in this encounter Care Teams Teasel Gig Operator Relationship Specialty Start Date End Date Noemi Mcbride NP PCP - General 05/08/17 01/06/23 documented as of this encounter
== END 2025-06-29 14:38 | disposition home or self-care (01) ==
LOC: HO.HMCH 13:27
DX: F32.9 Major depressive disorder, single episode, unspecified (principal); R74.8 Abnormal levels of other serum enzymes; E78.2 Mixed hyperlipidemia; R51.9 Headache, unspecified

== ENCOUNTER → 2025-06-29 13:26 | Outpatient (BNVA) | payer OTHER, SELFPAY | DX: E78.2 Mixed hyperlipidemia (principal); R51.9 Headache, unspecified; F32.9 Major depressive disorder, single episode, unspecified; R74.8 Abnormal levels of other serum enzymes | CPT/HCPCS: 99212 ==